=== PATIENT | male | born 1950 | race Two or more races ===

== ENCOUNTER 2017-12-25 02:28 | Emergency (ER) | payer OTHER, BC ==
[~2017-12-25] VITALS: Ht 172.7 cm; Wt 73.5 kg
[2017-12-25] MEDS ORDERED: PRILOSEC10 MG (02:39)
[2017-12-25] MEDS ORDERED: ZANTAC300 MG PO (07:24)
[2017-12-25] MEDS ORDERED: PROTONIX40 MG PO (07:24)
== END 2017-12-25 22:32 | disposition home or self-care (01) ==
LOC: ER 02:28
DX: K21.9 Gastro-esophageal reflux disease without esophagitis (principal); R07.89 Other chest pain; K30 Functional dyspepsia